=== PATIENT | female | born 1955 | race American Indian/Alaskan Native ===

== ENCOUNTER 2017-03-02 09:55 | Emergency (ER) | payer OTHER ==
[2017-03-02 09:57] VITALS: BMI 33.3
[2017-03-02 10:14] VITALS: BP 170/75; PULSE 70; RESP 18; TEMP 97.6; O2SAT 98
--- NOTE | 2017-03-02 10:32 | ED PDOC ---
Arrival/HPI - General Chief Complaint: Lower Extremity Problem/Injury Time Seen by Provider: 03/02/17 10:15 Historian: Patient - History of Present Illness Narrative History of Present Illness (Text): 03/02/17 10:29 61yo female with no PMhx who present with complaint of right knee pain that radiates to her lower leg x one month. Notes that pain is usually with ambulation. Has been taking OTC analgesic without relieve. Notes history of OA on her left knee and Knee replacement surgery last year. denies recent travel, chest pain, SOB, diaphoresis, trauma, redness, any other complaint. Past Medical History - Provider Review Nursing Documentation Reviewed: Yes - Infectious Disease Hx of Infectious Diseases: None - Tetanus Immunization Tetanus Immunization: Up to Date - Past Medical History Past Medical History: No Previous - Cardiac Hx Cardiac Disorders: No - Pulmonary Hx Respiratory Disorders: No - Neurological Hx Neurological Disorder: No - HEENT Hx HEENT Disorder: Yes (HAS MISSING FRONT TOOTH) - Renal Hx Renal Disorder: No - Endocrine/Metabolic Hx Endocrine Disorders: No - Hematological/Oncological Hx Blood Transfusions: No Hx Blood Transfusion Reaction: No - Integumentary Hx Dermatological Disorder: No - Musculoskeletal/Rheumatological Hx Musculoskeletal Disorders: Yes Other/Comment: L knee surgery, tendon repair - Gastrointestinal Hx Gastrointestinal Disorders: Yes (PEPTIC ULCER DISEASE) - Genitourinary/Gynecological Hx Genitourinary Disorders: Yes (PREMATURE MENAPAUSE-LMP AGE 28 PER PATIENT) - Psychiatric Hx Psychophysiologic Disorder: No Hx Substance Use: No - Past Surgical History Past Surgical History: No Previous - Surgical History Hx Cholecystectomy: Yes Hx Musculoskeletal Surgery: Yes (L knee surgery, tendon repair) - Anesthesia Hx Anesthesia: Yes Hx Anesthesia Reactions: No Hx Malignant Hyperthermia: No - Suicidal Assessment Feels Threatened In Home Enviroment: No Family/Social History - Physician Review Nursing Documentation Reviewed: Yes Family/Social History: Unknown Family HX Smoking Status: Never Smoked Hx Alcohol Use: No Hx Substance Use: No Hx Substance Use Treatment: No Allergies/Home Meds Allergies/Adverse Reactions: Allergies No Known Allergies Allergy (Verified 03/02/17 10:14) Review of Systems - Physician Review All systems were reviewed & negative as marked: Yes - Review of Systems Constitutional: Normal Eyes: Normal ENT: Normal Respiratory: Normal Cardiovascular: Normal Gastrointestinal: Normal Genitourinary Female: Normal Musculoskeletal: Arthralgias (Right knee) Skin: Normal Neurological: Normal Endocrine: Normal Hemo/Lymphatic: Normal Psychiatric: Normal Physical Exam Vital Signs Reviewed: Yes Vital Signs Temp Pulse Resp BP Pulse Ox 03/02/17 10:13 97.6 F 70 18 170/75 H 98 Temperature: Afebrile Blood Pressure: Normal Pulse: Regular Respiratory Rate: Normal Appearance: Positive for: Well-Appearing, Non-Toxic, Comfortable Pain Distress: None Mental Status: Positive for: Alert and Oriented X 3 - Systems Exam Head: Present: Atraumatic, Normocephalic Pupils: Present: PERRL Extroacular Muscles: Present: EOMI Conjunctiva: Present: Normal Mouth: Present: Moist Mucous Membranes Neck: Present: Normal Range of Motion Respiratory/Chest: Present: Clear to Auscultation, Good Air Exchange. No: Respiratory Distress, Accessory Muscle Use Cardiovascular: Present: Regular Rate and Rhythm, Normal S1, S2. No: Murmurs Abdomen: Present: Normal Bowel Sounds. No: Tenderness, Distention, Peritoneal Signs Back: Present: Normal Inspection Upper Extremity: Present: Normal Inspection. No: Cyanosis, Edema Lower Extremity: Present: CALF TENDERNESS, NORMAL PULSES, Normal ROM, Tenderness (Right knee), Neurovascularly Intact. No: Edema, Briana's Sign, Swelling, Erythema, Deformity, Temperature Abnormalties Neurological: Present: GCS=15, CN II-XII Intact, Speech Normal Skin: Present: Warm, Dry, Normal Color. No: Rashes Psychiatric: Present: Alert, Oriented x 3, Normal Insight, Normal Concentration Medical Decision Making ED Course and Treatment: 03/02/17 11:06 Right knee xray - No acute finding. DJD noted Right Duppler US - Negative DVT, Per US tech Result was DW the pt. she will be DC home with Naprosyn. referred to ortho. TRT ED for any new or worsening symptoms - RAD Interpretation Radiology Orders: 03/02/17 10:15 KNEE RIGHT 2 VIEWS (AP & LAT) [RAD] Stat 03/02/17 10:16 DUPLEX LOWER EXTRM VEIN RIGHT [US] Stat - Medication Orders Current Medication Orders: Discontinued Medications Ketorolac Tromethamine (Toradol) 60 mg IM STAT STA Stop: 03/02/17 10:17 Last Admin: 03/02/17 10:24 Dose: 60 mg Disposition/Present on Arrival - Present on Arrival Any Indicators Present on Arrival: No History of DVT/PE: No History of Uncontrolled Diabetes: No Urinary Catheter: No History of Decub. Ulcer: No History Surgical Site Infection Following: None - Disposition Have Diagnosis and Disposition been Completed?: Yes Diagnosis: Knee pain Disposition: HOME/ ROUTINE Disposition Time: 11:10 Patient Plan: Discharge Condition: STABLE Discharge Instructions (ExitCare): Knee Pain (ED) Additional Instructions: Follow up with orthopedist Return to ED for any new symptoms Prescriptions: Naproxen [Naprosyn] 500 mg PO BID #20 tab traMADol [Ultram] 50 mg PO TID #9 tab Referrals: Kartik Antoine MD [Primary Care Provider] - Follow up with primary Abran Santillan DO [Staff Provider] - Follow up with primary
--- NOTE | 2017-03-02 11:10 | RAD ---
PROCEDURE: Right Knee Radiographs. HISTORY: knee pain COMPARISON: 09/23/2014 FINDINGS: BONES: Normal. No fracture. JOINTS: Normal. No osteoarthritis. JOINT EFFUSION: None. OTHER FINDINGS: None. IMPRESSION: Negative study
--- NOTE | 2017-03-02 17:55 | US ---
PROCEDURE: Right lower extremity venous US HISTORY: Leg pain and swelling. Evaluate for DVT. PHYSICIAN(S): Phil Antoine M.D. TECHNIQUE: Duplex sonography and color-flow Doppler with graded compression were used to evaluate the deep venous system of the right lower extremity. FINDINGS: The visualized deep venous system of the right lower extremity is sonographically normal and compressible. Normal waveforms and augmentation are seen. There is no sonographic evidence for deep venous thrombosis in the visualized segments of the right lower extremity. IMPRESSION: 1. No sonographic evidence for deep venous thrombosis in the visualized segments of the right lower extremity.
== END 2017-03-02 11:21 | disposition home or self-care (01) ==
LOC: ED 09:55
DX: M25.561 Pain in right knee (principal)
CPT/HCPCS: 73560; 93971; 96372; 99284; J1885

== ENCOUNTER 2017-08-23 09:42 | Emergency (ER) | payer OTHER ==
[2017-08-23 10:00] VITALS: BMI 33.8
[2017-08-23 10:04] VITALS: BP 162/99; PULSE 72; RESP 18; TEMP 97.8; O2SAT 99
--- NOTE | 2017-08-23 10:12 | ED PDOC ---
Arrival/HPI - General Chief Complaint: Abnormal Skin Integrity Time Seen by Provider: 08/23/17 10:04 Historian: Patient - History of Present Illness Narrative History of Present Illness (Text): 08/23/17 10:09 62yo female with no PMhx who present with complaint of generalized pruritus and rash to her left hand and swollen left ear lobe since yesterday. Notes that she recently started using a new lotion and not sure if is causing her symptoms. She otherwise denies drooling, stridor, tongue swelling, chest pain, any other inciting factors. Past Medical History - Provider Review Nursing Documentation Reviewed: Yes - Infectious Disease Hx of Infectious Diseases: None - Tetanus Immunization Tetanus Immunization: Up to Date - Reproductive Menopause: Yes - Past Medical History Past Medical History: No Previous - Cardiac Hx Cardiac Disorders: No - Pulmonary Hx Respiratory Disorders: No - Neurological Hx Neurological Disorder: No - HEENT Hx HEENT Disorder: Yes (HAS MISSING FRONT TOOTH) - Renal Hx Renal Disorder: No - Endocrine/Metabolic Hx Endocrine Disorders: No - Hematological/Oncological Hx Blood Transfusions: No Hx Blood Transfusion Reaction: No - Integumentary Hx Dermatological Disorder: No - Musculoskeletal/Rheumatological Hx Musculoskeletal Disorders: Yes Other/Comment: L knee surgery, tendon repair - Gastrointestinal Hx Gastrointestinal Disorders: Yes (PEPTIC ULCER DISEASE) - Genitourinary/Gynecological Hx Genitourinary Disorders: Yes (PREMATURE MENAPAUSE-LMP AGE 28 PER PATIENT) - Psychiatric Hx Psychophysiologic Disorder: No Hx Substance Use: No - Past Surgical History Past Surgical History: No Previous - Surgical History Hx Cholecystectomy: Yes Hx Musculoskeletal Surgery: Yes (L knee surgery, tendon repair) - Anesthesia Hx Anesthesia: Yes Hx Anesthesia Reactions: No Hx Malignant Hyperthermia: No - Suicidal Assessment Feels Threatened In Home Enviroment: No Family/Social History - Physician Review Nursing Documentation Reviewed: Yes Family/Social History: Unknown Family HX Smoking Status: Never Smoked Hx Alcohol Use: No Hx Substance Use: No Hx Substance Use Treatment: No Allergies/Home Meds Allergies/Adverse Reactions: Allergies No Known Allergies Allergy (Verified 08/23/17 10:05) Review of Systems - Physician Review All systems were reviewed & negative as marked: Yes - Review of Systems Constitutional: Normal Eyes: Normal ENT: Normal Respiratory: Normal Cardiovascular: Normal Gastrointestinal: Normal Genitourinary Female: Normal Musculoskeletal: Normal Skin: Rash, Pruritis Neurological: Normal Endocrine: Normal Hemo/Lymphatic: Normal Psychiatric: Normal Physical Exam Vital Signs Reviewed: Yes Vital Signs Temp Pulse Resp BP Pulse Ox 08/23/17 10:00 97.8 F 72 18 162/99 H 99 Temperature: Afebrile Blood Pressure: Normal Pulse: Regular Respiratory Rate: Normal Appearance: Positive for: Well-Appearing, Non-Toxic, Comfortable Pain Distress: None Mental Status: Positive for: Alert and Oriented X 3 - Systems Exam Head: Present: Atraumatic, Normocephalic Pupils: Present: PERRL Extroacular Muscles: Present: EOMI Conjunctiva: Present: Normal Ears: Present: Other (Left inferior ear lobe swelling noted) Mouth: Present: Moist Mucous Membranes Neck: Present: Normal Range of Motion Respiratory/Chest: Present: Clear to Auscultation, Good Air Exchange. No: Respiratory Distress, Accessory Muscle Use Cardiovascular: Present: Regular Rate and Rhythm, Normal S1, S2. No: Murmurs Abdomen: Present: Normal Bowel Sounds. No: Tenderness, Distention, Peritoneal Signs Back: Present: Normal Inspection Upper Extremity: Present: Normal Inspection. No: Cyanosis, Edema Lower Extremity: Present: Normal Inspection. No: Edema Neurological: Present: GCS=15, CN II-XII Intact, Speech Normal Skin: Present: Warm, Dry, Normal Color. No: Rashes (No hives noted. LEft inferior ear lobe swelling noted) Psychiatric: Present: Alert, Oriented x 3, Normal Insight, Normal Concentration Disposition/Present on Arrival - Present on Arrival Any Indicators Present on Arrival: No History of DVT/PE: No History of Uncontrolled Diabetes: No Urinary Catheter: No History of Decub. Ulcer: No History Surgical Site Infection Following: None - Disposition Have Diagnosis and Disposition been Completed?: Yes Diagnosis: Contact dermatitis Disposition: HOME/ ROUTINE Disposition Time: 10:15 Patient Plan: Discharge Condition: STABLE Discharge Instructions (ExitCare): Contact Dermatitis (ED) Additional Instructions: Follow up with a [facility] Return to ED for any new or worsening symptoms Prescriptions: DiphenhydrAMINE [Benadryl] 25 mg PO Q6 #30 cap predniSONE [Prednisone] 10 mg PO DAILY #5 tab Referrals: Tasneem Burden MD [Staff Provider] - Follow up with primary
== END 2017-08-23 10:51 | disposition home or self-care (01) ==
LOC: ED 09:42
DX: L25.9 Unspecified contact dermatitis, unspecified cause (principal)

== ENCOUNTER 2018-10-19 08:33 | Emergency (ER) | payer OTHER ==
[2018-10-19 08:34] VITALS: BMI 33.8
[2018-10-19 08:59] VITALS: RESP 18
--- NOTE | 2018-10-19 09:45 | ED PDOC ---
Arrival/HPI - General Chief Complaint: Flu-like Symptoms Time Seen by Provider: 10/19/18 09:30 Historian: Patient - History of Present Illness Narrative History of Present Illness (Text): 10/19/18 09:46 63-year-old female presents today with cough nasal congestion sore throat body aches and fatigue that started yesterday. Patient states she took Motrin at 8 AM this morning for pain and fever. Patient denies shortness of breath. Denies chest pain. She denies dizziness or weakness. Patient states her nose started running today. Patient states her cough is dry. No abdominal pain. No nausea or vomiting. No sick contacts. Patient states she did get her flu shot this year. No other complaints Time/Duration: Other (yesterday) Past Medical History - Provider Review Nursing Documentation Reviewed: Yes - Travel History Have you recently traveled outside [place] w/in the past 3 mons?: No - Infectious Disease Hx of Infectious Diseases: None - Tetanus Immunization Tetanus Immunization: Up to Date - Past Medical History Past Medical History: No Previous - Cardiac Hx Cardiac Disorders: No - Pulmonary Hx Respiratory Disorders: No - Neurological Hx Neurological Disorder: No - HEENT Hx HEENT Disorder: Yes (HAS MISSING FRONT TOOTH) - Renal Hx Renal Disorder: No - Endocrine/Metabolic Hx Endocrine Disorders: No - Hematological/Oncological Hx Blood Transfusions: No Hx Blood Transfusion Reaction: No - Integumentary Hx Dermatological Disorder: No - Musculoskeletal/Rheumatological Hx Musculoskeletal Disorders: Yes Other/Comment: L knee surgery, tendon repair - Gastrointestinal Hx Gastrointestinal Disorders: Yes (PEPTIC ULCER DISEASE) - Genitourinary/Gynecological Hx Genitourinary Disorders: Yes (PREMATURE MENAPAUSE-LMP AGE 28 PER PATIENT) - Psychiatric Hx Psychophysiologic Disorder: No Hx Substance Use: No - Past Surgical History Past Surgical History: No Previous - Surgical History Hx Cholecystectomy: Yes Hx Musculoskeletal Surgery: Yes (L knee surgery, tendon repair) - Anesthesia Hx Anesthesia: Yes Hx Anesthesia Reactions: No Hx Malignant Hyperthermia: No - Suicidal Assessment Feels Threatened In Home Enviroment: No Family/Social History - Physician Review Nursing Documentation Reviewed: Yes Family/Social History: Unknown Family HX Smoking Status: Never Smoked Hx Alcohol Use: No Hx Substance Use: No Hx Substance Use Treatment: No Allergies/Home Meds Allergies/Adverse Reactions: Allergies No Known Allergies Allergy (Verified 08/23/17 10:05) Review of Systems - Review of Systems Constitutional: Fatigue. absent: Fevers ENT: Sore Throat, Sinus Congestion Respiratory: Cough. absent: SOB, Sputum, Wheezing Cardiovascular: absent: Chest Pain, Palpitations Gastrointestinal: absent: Abdominal Pain, Nausea, Vomiting Genitourinary Female: absent: Dysuria Musculoskeletal: Myalgias. absent: Arthralgias, Back Pain, Neck Pain Skin: absent: Rash, Pruritis Neurological: absent: Headache, Dizziness Psychiatric: absent: Anxiety, Depression Physical Exam Vital Signs Reviewed: Yes Vital Signs Temp Pulse Resp BP Pulse Ox 10/19/18 08:34 98.1 F 78 18 149/75 98 Temperature: Afebrile Blood Pressure: Normal Pulse: Regular Respiratory Rate: Normal Appearance: Positive for: Well-Appearing, Non-Toxic, Comfortable Pain Distress: None Mental Status: Positive for: Alert and Oriented X 3 - Systems Exam Head: Present: Atraumatic Ears: Present: Normal, NORMAL TM Mouth: Present: Moist Mucous Membranes. No: Drooling, Trismus Pharnyx: Present: Normal. No: ERYTHEMA, EXUDATE, TONSILS ENLARGED, Peritonsilar Swelling, Uvular Deviation Nose (External): Present: Atraumatic Nose (Internal): Present: Normal Inspection Neck: Present: Normal Range of Motion, Trachea Midline Respiratory/Chest: Present: Clear to Auscultation, Good Air Exchange. No: Respiratory Distress, Accessory Muscle Use Cardiovascular: Present: Regular Rate and Rhythm Abdomen: No: Tenderness Upper Extremity: Present: Normal ROM Lower Extremity: Present: Normal ROM Neurological: Present: GCS=15, Speech Normal Skin: Present: Warm, Dry, Normal Color. No: Rashes Psychiatric: Present: Alert, Oriented x 3 Medical Decision Making ED Course and Treatment: 10/19/18 09:48 Patient is nontoxic well-appearing in no distress. moist mucus membranes. Patient with flulike symptoms. Took Motrin prior to arrival Lungs clear to auscultation bilaterally tamiflu given Po I advised follow up with primary care physician within the next 2 days. Advised taking Tamiflu as prescribed and taking Motrin every 6 hours as needed for pain/fever reduction. I advised increase fluids and return if symptoms worsen persist or if new symptoms develop. patient verbalizes understanding of discharge instructions and need for immediate followup. All aspects of this case were discussed the attending of record. IMPRESSION; influenza Motrin every 6 hours as needed for pain/fever reduction Tamiflu twice daily times 5 days Increase fluids Follow-up with primary care physician within the next 2 days Return immediately if symptoms worsen persist or if new concerning symptoms develop Disposition/Present on Arrival - Present on Arrival Any Indicators Present on Arrival: No History of DVT/PE: No History of Uncontrolled Diabetes: No Urinary Catheter: No History of Decub. Ulcer: No History Surgical Site Infection Following: None - Disposition Have Diagnosis and Disposition been Completed?: Yes Diagnosis: Influenza-like symptoms Disposition: HOME/ ROUTINE Disposition Time: 09:40 Patient Plan: Discharge Condition: GOOD Discharge Instructions (ExitCare): Flu, Adult (DC) Additional Instructions: Motrin every 6 hours as needed for pain/fever reduction Tamiflu twice daily times 5 days Increase fluids Follow-up with primary care physician within the next 2 days Return immediately if symptoms worsen persist or if new concerning symptoms develop Prescriptions: Ibuprofen [Motrin] 600 mg PO Q6H PRN #20 tab PRN Reason: pain/fever reduction Oseltamivir Cap [Tamiflu] 75 mg PO BID #10 cap Referrals: FAMILY PROVIDER,NO [Primary Care Provider] - Follow up with primary Belen Leary MD [Medical Doctor] - Follow up with primary [facility] [Outside] - Follow up with primary Forms: [employer] ([employer]), WORK NOTE
[2018-10-19 10:17] VITALS: BP 137/75; PULSE 75; TEMP 98; O2SAT 99
== END 2018-10-19 10:16 | disposition home or self-care (01) ==
LOC: ED 08:33
DX: J11.1 Influenza due to unidentified influenza virus with other respiratory manifestations (principal)